=== PATIENT | female | born 1965 | race Caucasian/White ===

== ENCOUNTER 2017-09-25 07:15 | Emergency (ER) | payer MEDICARE, MEDICAID ==
[2017-09-25] MEDS ORDERED: Albuterol 0.083% 2.5 MG/3 ML Neb Soln NEB ONE (08:45)
--- NOTE | 2017-09-25 08:48 | EDM.PDOC ---
ED HPI GENERAL MEDICAL PROBLEM - General Chief Complaint: Respiratory Problem Stated Complaint: LUNG PAIN/CONGESTION Time Seen by Provider: 09/25/17 08:47 Source of Information: Reports: Patient History Limitations: Reports: No Limitations - History of Present Illness INITIAL COMMENTS - FREE TEXT/NARRATIVE: pt arrived stating she was having marked pain in the left chest area. She felt something pop and she developed acute pain. Onset: Today Duration: Hour(s):, Other (pt got up in the nite and was on the comode and she felt something pop in her left lower chest. ) Location: Reports: Chest, Other (pt is feeing sob. ) Associated Symptoms: Reports: Chest Pain, Cough, Shortness of Breath, Other (pt is raising some greenish sputum. ) Left Lower Back Pain Score (Numeric/FACES): 10 - Related Data Allergies Allergy/AdvReac Type Severity Reaction Status Date / Time epinephrine Allergy Unknown Cannot Verified 09/25/17 07:32 Remember Iodinated Contrast- Oral and Allergy Unknown Cannot Verified 09/25/17 07:32 IV Dye Remember [Iodinated Contrast Media - IV Dye] tetanus toxoid, adsorbed Allergy Unknown Cannot Verified 09/25/17 07:32 Remember Home Meds: Home Meds Cyanocobalamin (Vitamin B-12) [Cyanocobalamin Injection] 1,000 mcg IM .EVERY 30 DAYS 02/21/14 [History] Cyanocobalamin (Vitamin B-12) [Vitamin B-12] 1,000 mcg SL DAILY 02/21/14 [ History] Ergocalciferol (Vitamin D2) [Drisdol] 50,000 unit PO .WEEKLY 02/21/14 [History] Levothyroxine Sodium [Synthroid] 100 mcg PO DAILY 02/21/14 [History] buPROPion HCl [Wellbutrin Xl] 150 mg PO DAILY 02/21/14 [History] oxyCODONE HCl [Roxicodone] 30 mg PO Q3HR PRN 02/21/14 [History] Gabapentin [Neurontin] 600 mg PO BEDTIME 05/20/14 [History] LORazepam [Ativan] 0.5 mg PO TID 05/20/14 [History] traMADol [Ultram] 50 mg PO Q8HR 05/20/14 [History] Dextroamphetamine/Amphetamine [Adderall 10 mg Tablet] 10 mg PO BID 11/16/14 [ History] fentaNYL [Fentanyl] 50 mcg TOP Q48H 11/16/14 [History] Albuterol [Proventil Neb Soln] 0.63 mg NEB Q4HRRT PRN 09/25/17 [History] oxyCODONE 15 mg PO ASDIRECTED 09/25/17 [History] oxyCODONE [Oxycodone HCl] 10 mg PO ASDIRECTED 09/25/17 [History] Past Medical History HEENT History: Reports: Impaired Vision, Other (See Below) Other HEENT History: 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 Neurological History: Reports: Brain Injury, Concussion, Headaches, Chronic, Head Trauma, Migraines, MS, Neuropathy, Peripheral, Reflex Sympathetic Dystrophy Psychiatric History: Reports: Anxiety, Depression Endocrine/Metabolic History: Reports: Hypothyroidism, Multinodular Thyroid, Obesity/BMI 30+, Vitamin D Deficiency, Other (See Below) Hematologic History: Reports: B12 Deficiency Dermatologic History: Reports: Other (See Below) Other Dermatologic History: skin breakdown unders arms, stomache - Infectious Disease History Infectious Disease History: Reports: C-Difficile - Past Surgical History GI Surgical History: Reports: Appendectomy, Bariatric Procedure, Cholecystectomy , Other (See Below) Other GI Surgeries/Procedures: lap band long ago Female Surgical History: Reports: D&C Musculoskeletal Surgical History: Reports: Other (See Below) Other Musculoskeletal Surgeries/Procedures:: l humerous repair Social & Family History - Tobacco Use Smoking Status *Q: Current Every Day Smoker Years of Tobacco use: 30 Packs/Tins Daily: 1 Used Tobacco, but Quit: No Second Hand Smoke Exposure: Yes - Caffeine Use Caffeine Use: Reports: Soda - Alcohol Use Days Per Week of Alcohol Use: 0 - Recreational Drug Use Recreational Drug Use: No ED ROS GENERAL - Review of Systems Review Of Systems: See Below Constitutional: Reports: No Symptoms HEENT: Reports: Other (pt is having some dizziness. ) Respiratory: Reports: Shortness of Breath, Other (pain in left chest. ) Cardiovascular: Reports: Dyspnea on Exertion, Lightheadedness Endocrine: Reports: No Symptoms GI/Abdominal: Reports: No Symptoms : Reports: No Symptoms Musculoskeletal: Reports: Leg Pain Skin: Reports: No Symptoms ED EXAM, GENERAL - Physical Exam Exam: See Below Free Text/Narrative:: pt arrived sob and having pain in the left chest when she moves or takes a deep breath. She has been coughing up alot of thick grayish sputum. Exam Limited By: No Limitations General Appearance: Alert, Anxious, Moderate Distress Ears: Normal TMs Nose: Normal Inspection Throat/Mouth: Normal Inspection Head: Atraumatic Neck: Normal Inspection Respiratory/Chest: Decreased Breath Sounds, Other (pt is tender in the left lateral chest. She felt like something popped this am. ) Cardiovascular: Regular Rate, Rhythm GI/Abdominal: Soft, Non-Tender (Female) Exam: Deferred Rectal (Female) Exam: Deferred Back Exam: Normal Inspection Extremities: Normal Inspection Neurological: Alert, Oriented, Normal Cognition Course - Vital Signs Last Recorded V/S: Last Vital Signs Temp 36.7 C 09/25/17 14:40 Pulse 84 09/25/17 14:40 Resp 16 09/25/17 14:40 BP 120/76 09/25/17 14:40 Pulse Ox 91 L 09/25/17 14:40 - Orders/Labs/Meds Labs: Laboratory Tests 09/25/17 09/25/17 09/25/17 Range/Units 08:52 08:52 08:52 WBC 9.0 (4.5-11.0) K/uL RBC 4.24 (3.30-5.50) M/uL Hgb 12.2 (12.0-15.0) g/dL Hct 37.9 (36.0-48.0) % MCV 89 (80-98) fL MCH 29 (27-31) pg MCHC 32 (32-36) % Plt Count 249 (150-400) K/uL Neut % (Auto) 76 H (36-66) % Lymph % (Auto) 15 L (24-44) % Jackson % (Auto) 6 (2-6) % Eos % (Auto) 3 (2-4) % Baso % (Auto) 0 (0-1) % Sodium 140 (140-148) mmol/L Potassium 3.5 L (3.6-5.2) mmol/L Chloride 101 (100-108) mmol/L Carbon Dioxide 32 (21-32) mmol/L Anion Gap 10.5 (5.0-14.0) mmol/L BUN 9 (7-18) mg/dL Creatinine 0.8 (0.6-1.0) mg/dL Est Cr Clr Drug Dosing 67.27 mL/min Estimated GFR (MDRD) > 60 (>60) Glucose 138 H (74-106) mg/dL Calcium 9.0 (8.5-10.1) mg/dL Total Bilirubin 0.4 (0.2-1.0) mg/dL AST 21 (15-37) U/L ALT 26 (12-78) U/L Alkaline Phosphatase 101 (46-116) U/L C-Reactive Protein (0.0-0.3) mg/dL NT-Pro-B Natriuret Pep 31 (5-125) pg/mL Total Protein 7.5 (6.4-8.2) g/dL Albumin 3.5 (3.4-5.0) g/dL Globulin 4.0 H (2.3-3.5) g/dL Albumin/Globulin Ratio 0.9 L (1.2-2.2) TSH, Ultra Sensitive (0.358-3.740) uIU/mL Urine Color Urine Appearance Urine pH (4.5-8.0) Ur Specific [place] (1.008-1.030) Urine Protein (NEGATIVE) mg/dL Urine Glucose (UA) (NEGATIVE) mg/dL Urine Ketones (NEGATIVE) mg/dL Urine Occult Blood (NEGATIVE) Urine Nitrite (NEGATIVE) Urine Bilirubin (NEGATIVE) Urine Urobilinogen (NORMAL) mg/dL Ur Leukocyte Esterase (NEGATIVE) Urine RBC (0-5) Urine WBC (0-5) Ur Epithelial Cells Amorphous Sediment Urine Bacteria Urine Mucus 09/25/17 09/25/17 09/25/17 Range/Units 09:06 09:42 10:04 WBC (4.5-11.0) K/uL RBC (3.30-5.50) M/uL Hgb (12.0-15.0) g/dL Hct (36.0-48.0) % MCV (80-98) fL MCH (27-31) pg MCHC (32-36) % Plt Count (150-400) K/uL Neut % (Auto) (36-66) % Lymph % (Auto) (24-44) % Jackson % (Auto) (2-6) % Eos % (Auto) (2-4) % Baso % (Auto) (0-1) % Sodium (140-148) mmol/L Potassium (3.6-5.2) mmol/L Chloride (100-108) mmol/L Carbon Dioxide (21-32) mmol/L Anion Gap (5.0-14.0) mmol/L BUN (7-18) mg/dL Creatinine (0.6-1.0) mg/dL Est Cr Clr Drug Dosing mL/min Estimated GFR (MDRD) (>60) Glucose (74-106) mg/dL Calcium (8.5-10.1) mg/dL Total Bilirubin (0.2-1.0) mg/dL AST (15-37) U/L ALT (12-78) U/L Alkaline Phosphatase (46-116) U/L C-Reactive Protein 2.68 H (0.0-0.3) mg/dL NT-Pro-B Natriuret Pep (5-125) pg/mL Total Protein (6.4-8.2) g/dL Albumin (3.4-5.0) g/dL Globulin (2.3-3.5) g/dL Albumin/Globulin Ratio (1.2-2.2) TSH, Ultra Sensitive 1.497 (0.358-3.740) uIU/mL Urine Color Yellow Urine Appearance Slightly cloudy Urine pH 5.0 (4.5-8.0) Ur Specific [place] 1.025 (1.008-1.030) Urine Protein Negative (NEGATIVE) mg/dL Urine Glucose (UA) Normal (NEGATIVE) mg/dL Urine Ketones Negative (NEGATIVE) mg/dL Urine Occult Blood Negative (NEGATIVE) Urine Nitrite Negative (NEGATIVE) Urine Bilirubin Small (NEGATIVE) Urine Urobilinogen 1 (NORMAL) mg/dL Ur Leukocyte Esterase Negative (NEGATIVE) Urine RBC 0-5 (0-5) Urine WBC 0-5 (0-5) Ur Epithelial Cells Moderate Amorphous Sediment Not seen Urine Bacteria Moderate Urine Mucus Not seen Meds: Medications Discontinued Medications Generic Name Dose Route Start Last Admin Trade Name Minnie PRN Reason Stop Dose Admin Albuterol 2.5 mg 09/25/17 08:45 09/25/17 09:54 Proventil Neb Soln NEB 09/25/17 08:46 2.5 mg ONETIME ONE Administration Diphenhydramine HCl 25 mg 09/25/17 09:38 09/25/17 09:52 Benadryl IVPUSH 09/25/17 09:39 25 mg ONETIME ONE Administration Sodium Chloride 100 mls @ 4 mls/sec 09/25/17 10:02 09/25/17 10:12 Normal Saline IV 09/25/17 10:03 4 mls/sec ASDIRECTED STA Administration Levofloxacin/Dextrose 500 mg/ 100 mls @ 100 mls/hr 09/25/17 12:53 09/25/17 13 :25 Premix IV 09/25/17 13:52 100 mls/hr ONETIME ONE Administration Ibuprofen 600 mg 09/25/17 12:02 09/25/17 12:09 Motrin PO 09/25/17 12:03 600 mg ONETIME ONE Administration Iopamidol 100 ml 09/25/17 10:02 09/25/17 10:11 Isovue-370 (76%) IV 09/25/17 10:03 100 ml . DIRECTED STA Administration Levofloxacin 750 mg 09/25/17 13:34 Levaquin PO 09/25/17 13:35 ONETIME ONE Ondansetron HCl 4 mg 09/25/17 09:38 09/25/17 09:50 Zofran IVPUSH 09/25/17 09:39 4 mg ONETIME ONE Administration - Re-Assessments/Exams Free Text/Narrative Re-Assessment/Exam: 09/25/17 13:03 pt had a normal wbc. Her chem looked good except her crp was greater than 2. Her o2 sats were in the low 90s. She did cough up some mera looking sputum. This was cultured. Her chest xray shoed alot of chronic changes. Her urine was clear. A cat scan ot he chest did not reveal any clots. It did reveal a consolidation in the lingular lobe and atelectasis and patchy infiltrates Departure - Departure Time of Disposition: 14:40 Disposition: Home, Self-Care 01 Condition: Fair Clinical Impression: Pneumonia, Atelectasis - Discharge Information Instructions: Community-Acquired Pneumonia, Adult, [id number] Referrals: PCP,None [Primary Care Provider] - Forms: ED Department Discharge Care Plan Goals: follow up with Stephanie Medina in 6-7 days, levoquin 500mg daily, use albuterol nebs at leat tid, push fluids.
[2017-09-25] MEDS ORDERED: Ondansetron 4 MG/2 ML SDV IVPUSH ONE (09:38)
[2017-09-25] MEDS ORDERED: diphenhydrAMINE 50 MG/ML SDV IVPUSH ONE (09:38)
[2017-09-25] MEDS ORDERED: Iopamidol 755 Mg/ML 100 ML Bottle IV STA (10:02)
[2017-09-25] MEDS ORDERED: Sodium Chloride 0.9% 100 ML IV STA (10:02)
[2017-09-25] MEDS ORDERED: Ibuprofen 600 MG Tab PO ONE (12:02)
[2017-09-25] MEDS ORDERED: Levofloxacin/Dextrose 5%-Water 500 MG in Premix Bag 1 BAG IV ONE ×2 (12:53→13:46)
[2017-09-25] MEDS ORDERED: Levofloxacin 250 MG Tab PO ONE (13:34)
[2017-09-25 14:46] VITALS: BP 120/76
--- NOTE | 2017-09-26 10:05 | CR ---
Heart size stable. Patchy opacities within the lingula and right lung base are concerning for infiltr ate. No pneumothorax.
== END 2017-09-25 14:46 | disposition home or self-care (01) ==
LOC: JP.ED 07:15
DX: J18.9 Pneumonia, unspecified organism (principal); J98.11 Atelectasis; Z88.8 Allergy status to other drugs, medicaments and biological substances; Z79.899 Other long term (current) drug therapy; F17.210 Nicotine dependence, cigarettes, uncomplicated
CPT/HCPCS: 36415; 71020; 71275; 80053; 81001; 83880; 84443; 85025; 86140; 87070; 87077; 87205; 93005; 94640; 96365; 96375; 99284; A9270; J1200; J1956; J2405; J7030; Q9967; 93010

== ENCOUNTER 2023-01-28 23:41 | Emergency (ER) | payer MEDICARE, MEDICAID ==
[2023-01-29 00:27] VITALS: BP 109/71; PULSE 86
[2023-01-29] MEDS ORDERED: Ketorolac 30 MG/ML SDV IVPUSH ONE (01:05)
[2023-01-29] MEDS ORDERED: methylPREDNISolone Sodium Succinate 125 MG/2 ML SDV IVPUSH ONE (01:05)
[2023-01-29] MEDS ORDERED: methylPREDNISolone Sodium Succinate 125 MG/2 ML SDV IM ONE (01:46)
[2023-01-29] MEDS ORDERED: Ketorolac 30 MG/ML SDV IM ONE (01:46)
[2023-01-29] MEDS ORDERED: Acetaminophen 500 MG Tab PO ONE (02:14)
[2023-01-29 02:49] LABS: CORONAVIRUS COVID-19 NAA NEGATIVE (NEGATIVE)
== END 2023-01-29 03:18 | disposition home or self-care (01) ==
LOC: JP.ED 23:41
DX: M54.50 Low back pain, unspecified (principal); J02.0 Streptococcal pharyngitis; G89.29 Other chronic pain; E03.9 Hypothyroidism, unspecified; E66.9 Obesity, unspecified; Z68.31 Body mass index [BMI] 31.0-31.9, adult; Z88.4 Allergy status to anesthetic agent; Z91.041 Radiographic dye allergy status; Z88.7 Allergy status to serum and vaccine; Z79.899 Other long term (current) drug therapy; Z72.0 Tobacco use; Z20.822 Contact with and (suspected) exposure to COVID-19
CPT/HCPCS: 0241U; 36415; 80048; 85025; 86140; 87880-QW; 96372; 99283; A9270-GY; J1885; J2930

== ENCOUNTER 2023-08-03 19:08 | Emergency (ER) | payer MEDICARE, MEDICAID ==
[2023-08-03] MEDS ORDERED: cefTRIAXone 2 GM in Sodium Chloride 0.9% 50 ML IV ONE (20:02)
[2023-08-03] MEDS ORDERED: Sodium Chloride 0.9% 1,000 ML IV SCH (20:15)
[2023-08-03 20:24] VITALS: BP 114/50; PULSE 80
[2023-08-03 20:27] LABS: BASOPHILS ABSOLUTE AUTO 0.04 K/uL (0.00-0.10); BASOPHILS PERCENT AUTO 0.5 % (0.1-1.3); EOSINOPHILS ABSOLUTE AUTO 0.36 K/uL (0.00-0.40); EOSINOPHILS PERCENT AUTO 4.2 % (0.0-5.4); HEMOGLOBIN 12.1 g/dL (11.2-15.5); IMMATURE GRAN ABSOLUTE AUTO 0.03 K/uL (0.00-0.23); IMMATURE GRAN PERCENT AUTO 0.4 % (0.0-0.7); LYMPHOCYTES ABSOLUTE AUTO 1.63 K/uL (0.8-3.3); LYMPHOCYTES PERCENT AUTO 19.1 % (11.4-47.7); MEAN CORPUSCULAR HEMOGLOBIN 29.3 pg (31.6-35.5); MEAN CORPUSCULAR HGB CONC 32.7 g/dL (31.6-35.5); MEAN CORPUSCULAR VOLUME 89.6 fL (81.4-99.0); MONOCYTES ABSOLUTE AUTO 0.44 K/uL (0.20-0.90); MONOCYTES PERCENT AUTO 5.1 % (3.3-12.6); NEUTROPHILS ABSOLUTE AUTO 6.05 K/uL (1.0-7.6); NEUTROPHILS PERCENT AUTO 70.7 % (40.0-78.1); PLATELET COUNT,PLT 260 K/uL (130-375); RED BLOOD CELL COUNT 4.13 M/uL (3.77-5.24); WHITE BLOOD CELL COUNT,WBC 8.6 K/uL (3.2-11.0)
[2023-08-03 20:49] LABS: A/G RATIO 0.8 (1.2-2.2); ALANINE AMINOTRANSFERASE,ALT 20 U/L (12-78); ALBUMIN 3.1 g/dL (3.4-5.0); ALKALINE PHOSPHATASE 123 U/L (46-116); ASPARTATE AMNIOTRANSFERASE,AST 26 U/L (15-37); BILIRUBIN TOTAL 0.4 mg/dL (0.2-1.0); BLOOD UREA NITROGEN,BUN 13 mg/dL (7-18); CALCIUM 8.1 mg/dL (8.5-10.1); CARBON DIOXIDE,CO2 32 mmol/L (21-32); CHLORIDE,CL 99 mmol/L (100-108); CREATININE 0.9 mg/dL (0.6-1.0); EST CRCL DRUG DOSING (CG) 55.68 mL/min; ESTIMATED GFR 74 mL/min (>60); GLUCOSE RANDOM 141 mg/dL (74-106); POTASSIUM,K 3.5 mmol/L (3.6-5.2); PROTEIN TOTAL,TP 7.2 g/dL (6.4-8.2); SODIUM,NA 137 mmol/L (140-148)
[2023-08-03 20:50] LABS: ANION GAP 9.5 mmol/L (5.0-14.0)
== END 2023-08-03 22:36 | disposition home or self-care (01) ==
LOC: JP.ED 19:08
DX: L03.311 Cellulitis of abdominal wall (principal); B37.2 Candidiasis of skin and nail; J44.9 Chronic obstructive pulmonary disease, unspecified; E03.9 Hypothyroidism, unspecified; E66.9 Obesity, unspecified; Z68.43 Body mass index [BMI] 50.0-59.9, adult; Z88.8 Allergy status to other drugs, medicaments and biological substances; Z91.041 Radiographic dye allergy status; Z88.7 Allergy status to serum and vaccine; Z79.899 Other long term (current) drug therapy
CPT/HCPCS: 36415; 74176; 80053; 83605; 84145; 85025; 87040; 96361; 96365; 99284; J0696; J3490; J7030

== ENCOUNTER 2024-02-22 03:24 | Emergency (ER) | payer MEDICARE, MEDICAID ==
[2024-02-22 05:33] LABS: BASOPHILS PERCENT AUTO 0.6 % (0.1-1.3); EOSINOPHILS ABSOLUTE AUTO 0.39 K/uL (0.00-0.40); EOSINOPHILS PERCENT AUTO 2.3 % (0.0-5.4); HEMATOCRIT 37.4 % (34.3-46.0); HEMOGLOBIN 12.6 g/dL (11.2-15.5); IMMATURE GRAN ABSOLUTE AUTO 0.11 K/uL (0.00-0.23); IMMATURE GRAN PERCENT AUTO 0.7 % (0.0-0.7); LYMPHOCYTES ABSOLUTE AUTO 2.75 K/uL (0.8-3.3); LYMPHOCYTES PERCENT AUTO 16.3 % (11.4-47.7); MEAN CORPUSCULAR HEMOGLOBIN 30.5 pg (31.6-35.5); MEAN CORPUSCULAR HGB CONC 33.7 g/dL (31.6-35.5); MEAN CORPUSCULAR VOLUME 90.6 fL (81.4-99.0); MONOCYTES ABSOLUTE AUTO 1.21 K/uL (0.20-0.90); MONOCYTES PERCENT AUTO 7.2 % (3.3-12.6); NEUTROPHILS ABSOLUTE AUTO 12.29 K/uL (1.0-7.6); NEUTROPHILS PERCENT AUTO 72.9 % (40.0-78.1); PLATELET COUNT,PLT 265 K/uL (130-375); RED BLOOD CELL COUNT 4.13 M/uL (3.77-5.24); WHITE BLOOD CELL COUNT,WBC 16.9 K/uL (3.2-11.0)
[2024-02-22 05:49] LABS: ANION GAP 13.9 mmol/L (5.0-14.0); CALCIUM 9.1 mg/dL (8.5-10.1); CREATININE 1.6 mg/dL (0.6-1.0); EST CRCL DRUG DOSING (CG) 30.93 mL/min; POTASSIUM,K 4.9 mmol/L (3.6-5.2)
[2024-02-22 06:22] VITALS: BP 168/78; PULSE 105
== END 2024-02-22 06:15 | disposition home or self-care (01) ==
LOC: JP.ED 03:24
DX: I87.2 Venous insufficiency (chronic) (peripheral) (principal); J44.89 Other specified chronic obstructive pulmonary disease; F17.210 Nicotine dependence, cigarettes, uncomplicated; Z88.8 Allergy status to other drugs, medicaments and biological substances; Z91.041 Radiographic dye allergy status; Z88.7 Allergy status to serum and vaccine; Z91.018 Allergy to other foods; Z79.899 Other long term (current) drug therapy; Z79.51 Long term (current) use of inhaled steroids
CPT/HCPCS: 36415; 80048; 85025; 87070; 87077; 87186; 87205; 99283

== ENCOUNTER 2024-07-15 09:41 | Inpatient (IN) | payer MEDICARE, MEDICAID ==
[2024-07-15 11:39] LABS: BASOPHILS ABSOLUTE AUTO 0.05 K/uL (0.00-0.10); BASOPHILS PERCENT AUTO 0.6 % (0.1-1.3); EOSINOPHILS PERCENT AUTO 3.5 % (0.0-5.4); HEMATOCRIT 31.4 % (34.3-46.0); HEMOGLOBIN 10.4 g/dL (11.2-15.5); IMMATURE GRAN ABSOLUTE AUTO 0.03 K/uL (0.00-0.23); IMMATURE GRAN PERCENT AUTO 0.3 % (0.0-0.7); LYMPHOCYTES ABSOLUTE AUTO 1.41 K/uL (0.8-3.3); LYMPHOCYTES PERCENT AUTO 16.3 % (11.4-47.7); MEAN CORPUSCULAR HEMOGLOBIN 30.5 pg (31.6-35.5); MEAN CORPUSCULAR HGB CONC 33.1 g/dL (31.6-35.5); MEAN CORPUSCULAR VOLUME 92.1 fL (81.4-99.0); MONOCYTES ABSOLUTE AUTO 0.57 K/uL (0.20-0.90); MONOCYTES PERCENT AUTO 6.6 % (3.3-12.6); NEUTROPHILS ABSOLUTE AUTO 6.28 K/uL (1.0-7.6); NEUTROPHILS PERCENT AUTO 72.7 % (40.0-78.1); PLATELET COUNT,PLT 275 K/uL (130-375); RED BLOOD CELL COUNT 3.41 M/uL (3.77-5.24); WHITE BLOOD CELL COUNT,WBC 8.6 K/uL (3.2-11.0)
[2024-07-15 12:05] LABS: A/G RATIO 0.8 (1.2-2.2); ALANINE AMINOTRANSFERASE,ALT 7 U/L (12-78); ALBUMIN 3.1 g/dL (3.4-5.0); ALKALINE PHOSPHATASE 86 U/L (46-116); ASPARTATE AMNIOTRANSFERASE,AST 13 U/L (15-37); BILIRUBIN TOTAL 0.9 mg/dL (0.2-1.0); BLOOD UREA NITROGEN,BUN 9 mg/dL (7-18); C-REACTIVE PROTEIN 2.25 mg/dL (<0.50); CALCIUM 8.9 mg/dL (8.5-10.1); CARBON DIOXIDE,CO2 31 mmol/L (21-32); CHLORIDE,CL 104 mmol/L (100-108); EST CRCL DRUG DOSING (CG) 58.18 mL/min; ESTIMATED GFR 64 mL/min (>60); GLUCOSE RANDOM 91 mg/dL (74-106); POTASSIUM,K 3.2 mmol/L (3.6-5.2); PROTEIN TOTAL,TP 7.2 g/dL (6.4-8.2); SODIUM,NA 142 mmol/L (140-148); TROPONIN I HIGH SENSITIVITY 12.3 pg/mL (<=60.3)
[2024-07-15 12:12] LABS: ANION GAP 10.2 mmol/L (5.0-14.0)
[2024-07-15] MEDS: Ondansetron 4 MG/2 ML SDV IVPUSH ONE (13:20)
[2024-07-15] MEDS: Sodium Chloride 0.9% 10 ML Syringe FLUSH ONE (13:29)
[2024-07-15] MEDS: diphenhydrAMINE 50 MG/ML SDV IVPUSH ONE (13:30)
[2024-07-15] MEDS: hydrOXYzine HCl 10 MG Tab PO ONE (14:29)
[2024-07-15] MEDS ORDERED: oxyCODONE 5 MG Tab PO PRN (17:46)
[2024-07-15] MEDS ORDERED: Sodium Chloride 0.9% 10 ML Syringe FLUSH PRN (17:46)
[2024-07-15] MEDS ORDERED: Acetaminophen 325 MG Tab PO PRN (17:46)
[2024-07-15] MEDS ORDERED: Nicotine Polacrilex 2 MG Gum CHEW PRN (17:46)
[2024-07-15] MEDS ORDERED: Polyethylene Glycol 3350 Powder 17 GM Packet PO PRN (17:46)
[2024-07-15] MEDS: Nicotine 21 MG/24 Hr Patch TRDERM SCH ×2 (18:49→19:26)
[2024-07-15] MEDS: Potassium Chloride 10 MEQ in Premix Bag 1 BAG IV ONE (18:49)
[2024-07-15] MEDS: Enoxaparin 40 MG/0.4 ML Syringe SUBCUT SCH (18:49)
[2024-07-15] MEDS: Potassium Chloride 20 MEQ Tab.ER PO ONE ×2 (19:59→20:05)
[2024-07-15] MEDS: Furosemide 40 MG/4 ML VIAL IVPUSH ONE (20:05)
[2024-07-15] MEDS: Gabapentin 300 MG Cap PO SCH (20:05)
[2024-07-15] MEDS: oxyCODONE 5 MG Tab PO PRN (20:05)
[2024-07-15] MEDS: Ondansetron 4 MG/2 ML SDV IV PRN (20:11)
[2024-07-15] MEDS: Furosemide 40 MG/4 ML VIAL ONE (20:19)
[2024-07-15] MEDS: Iopamidol 755 Mg/ML 100 ML Bottle IV SCH (20:43)
[2024-07-15] MEDS: Sodium Chloride 0.9% 100 ML IV SCH (20:43)
[2024-07-15] MEDS: Sodium Chloride 0.9% 10 ML Syringe FLUSH PRN (20:44)
[2024-07-16] MEDS: LORazepam 0.5 MG Tab PO PRN (00:58)
[2024-07-16] MEDS: Potassium Chloride 20 MEQ Tab.ER PO STA (00:59)
[2024-07-16] MEDS: Albuterol/Ipratropium 3.0-0.5 MG/3 ML Neb Soln NEB PRN (04:37)
[2024-07-16] MEDS: diphenhydrAMINE 25 MG Cap PO PRN (05:01)
[2024-07-16 05:04] LABS: HEMATOCRIT 32.7 % (34.3-46.0); HEMOGLOBIN 11.1 g/dL (11.2-15.5); MEAN CORPUSCULAR HGB CONC 33.9 g/dL (31.6-35.5); MEAN CORPUSCULAR VOLUME 91.3 fL (81.4-99.0); RED BLOOD CELL COUNT 3.58 M/uL (3.77-5.24); WHITE BLOOD CELL COUNT,WBC 9.7 K/uL (3.2-11.0)
[2024-07-16 05:29] LABS: EST CRCL DRUG DOSING (CG) 58.18 mL/min; MAGNESIUM 1.8 mg/dL (1.8-2.4)
[2024-07-16 05:31] LABS: ANION GAP 11.2 mmol/L (5.0-14.0); POTASSIUM,K 4.2 mmol/L (3.6-5.2)
[2024-07-16] MEDS: Potassium Chloride 10 MEQ Cap.ER PO SCH (08:20)
[2024-07-16] MEDS: Escitalopram 10 MG Tab PO SCH (11:00)
[2024-07-16 14:54] LABS: BODY FLUID TYPE PLEURAL FLUID
[2024-07-16] MEDS: Furosemide 40 MG/4 ML VIAL IVPUSH ONE (15:16)
[2024-07-16 15:55] LABS: WBC BODY FLUID 491 /ul
[2024-07-16 15:56] LABS: MONONUCLEAR, BODY FLUID 63 %; POLYMORPHONUCLEAR, BODY FLUID 37 %; RBC,BODY FLUID 849 /ul
[2024-07-17 06:33] LABS: C-REACTIVE PROTEIN 5.29 mg/dL (<0.50); CALCIUM 8.9 mg/dL (8.5-10.1); CREATININE 1.1 mg/dL (0.6-1.0); EST CRCL DRUG DOSING (CG) 52.89 mL/min
[2024-07-17] MEDS ORDERED: Furosemide 40 MG/4 ML VIAL IVPUSH ONE (14:00)
[2024-07-17] MEDS: Furosemide 40 MG/4 ML VIAL IVPUSH ONE (16:37)
[2024-07-18] MEDS: Furosemide 40 MG/4 ML VIAL IVPUSH SCH (09:14)
[2024-07-18 13:36] VITALS: BP 135/67; PULSE 86
== END 2024-07-18 14:00 | disposition home or self-care (01) | DRG 291 ==
LOC: JP.ED 09:41 → JP.MS 16:18
PROVIDERS: ADMIT Hospitalist; ATTEND Internal Medicine
PROC: 0W993ZZ Drainage of Right Pleural Cavity, Percutaneous Approach (ICD-10-PCS; principal; 2024-07-15)
DX: J90 Pleural effusion, not elsewhere classified (principal); R09.02 Hypoxemia; I50.9 Heart failure, unspecified; I87.8 Other specified disorders of veins; J96.01 Acute respiratory failure with hypoxia; R79.89 Other specified abnormal findings of blood chemistry; J91.8 Pleural effusion in other conditions classified elsewhere; J44.9 Chronic obstructive pulmonary disease, unspecified; Z91.041 Radiographic dye allergy status; H91.90 Unspecified hearing loss, unspecified ear; Z88.8 Allergy status to other drugs, medicaments and biological substances; H54.7 Unspecified visual loss; E66.9 Obesity, unspecified; Z68.42 Body mass index [BMI] 45.0-49.9, adult; E03.9 Hypothyroidism, unspecified; F41.9 Anxiety disorder, unspecified; F32.A Depression, unspecified; G89.29 Other chronic pain; M54.2 Cervicalgia; I87.2 Venous insufficiency (chronic) (peripheral); F17.210 Nicotine dependence, cigarettes, uncomplicated; Z88.7 Allergy status to serum and vaccine; Z91.010 Allergy to peanuts; Z88.4 Allergy status to anesthetic agent; Z79.899 Other long term (current) drug therapy; Z87.442 Personal history of urinary calculi; Z90.49 Acquired absence of other specified parts of digestive tract; Z98.84 Bariatric surgery status; Z68.39 Body mass index [BMI] 39.0-39.9, adult; Z90.89 Acquired absence of other organs; Z98.890 Other specified postprocedural states
CPT/HCPCS: 36415; 71045 ×2; 71275; 80053; 83605; 83880; 84145; 84484; 85025; 85379; 86140; 87040 ×2; 93005; 96374; 96375; 99285; J1200; J2405; J3490; U0002; 32555; 80048; 83735; 84132; 85027; 87070; 87205; 89050; 93010; 94640; 99222; 99232; 99238; A9270-GY; C1729; J1650; J1940; J3480; J7620; Q9967